=== PATIENT | female | born 1980 | race Two or more races ===

== ENCOUNTER 2025-07-22 09:51 | Outpatient (RCR) | payer MEDICAID, SELFPAY ==
--- NOTE | 2025-07-22 10:10 | PTNOTE_ITS ---
PT OP Initial Eval Patient Information Outpatient Physical Therapy Treatment Date: 07/22/25 Visit Reasons: Neck pain/shoulder pain Medical Diagnosis: M54.12 Treatment Dx #1: neck pain Treatment Dx #2: L UE pain Start of Care: 07/22/25 Date of Onset: 6 months ago Smoking Status Smoking Status: Never smoker Initial Assessment Subjective: Pt is 44 yr old female who c/o neck pain long Hx x10 yrs that has worsened over the past few years. When the pain is bad she has difficulty rotating the head and limits all activities. She sometimes gets some L UE pain under the shoulder pain and L shoulder pain. The neck feels tight. PMH: Imaging: MRI of C/S results not available today Pt goal: more ROM, less tightness in neck Objective: C/s AROM: L: 60% , R: 80% of full Extension: 30% with pain Flexion: 80% of full TTP: moderate/high of B UT's and L side of C/S Assessment: Pt presents with limited C/S AROM and myofascial pain consistent with DDD and L UE radiculopathy. Pt requires skilled therapy to meet goals and has fair rehab potential. 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 Ind with HEP ? 2. Improved L rotation to 80% of full ? 3. Decreased TTP of C/S paraspinals from mod to min ? 4. Pt will turn head L to R x5 with <=4/10 pain Treatment Plan 1. Manual therapy ? 2. Therex ? 3. Modalities as indicated, mechanical traction, estim, moist heat, ice Frequency and Duration: 1-2x a week for 8 Rx sessions plus the evaluation Certification Dates: 07/22/25 to 09/20/25 Procedure Charges OP PT Eval Mod Complex 30 minutes: Yes
== END 2025-07-27 23:59 | disposition home or self-care (01) ==
LOC: CPTX 09:51
PROVIDERS: PCP Physical Medicine & Rehabilitation Pain Medicine; Referring Provider Physical Medicine & Rehabilitation Pain Medicine; Visit Provider Physical Medicine & Rehabilitation Pain Medicine
DX: M54.12 Radiculopathy, cervical region (principal); M62.48 Contracture of muscle, other site
CPT/HCPCS: 97162

== ENCOUNTER 2025-08-12 13:30 | Outpatient (RCR) | payer MEDICAID, SELFPAY ==
--- NOTE | 2025-08-06 11:34 | PT.ODAYNRPT ---
PT Outpatient Daily Note OP Daily Note Outpatient Physical Therapy Treatment Date: 08/06/25 Visit Reasons: NECK AND SHOULDER PAIN Subjective: Pt c/o neck pain and tension in upper trap region. Objective: Please see flow sheet for ther ex list. Assessment: Pt performed light stretches for c/s, c/o minimal pain with L side bend. Plan: Apply mechanical traction, assess response to treatment. Length of Time (minutes) of Treatment: 30 Minutes Procedure Charges Therapeutic Exercise 30 minutes: Yes
--- NOTE | 2025-08-08 16:12 | PT.ODAYNRPT ---
PT Outpatient Daily Note OP Daily Note Outpatient Physical Therapy Treatment Date: 08/08/25 Visit Reasons: NECK AND SHOULDER PAIN Subjective: Pt reports neck felt a little better after last session. Objective: Please see flow sheet for ther ex list. Assessment: Applied mechanical traction, pt tolerated well and reported improved c/s symptoms. Plan: Continue with POC. Length of Time (minutes) of Treatment: 30 Minutes Procedure Charges Therapeutic Exercise 30 minutes: Yes
--- NOTE | 2025-08-12 14:18 | PT.ODAYNRPT ---
PT Outpatient Daily Note OP Daily Note Outpatient Physical Therapy Treatment Date: 08/12/25 Visit Reasons: NECK AND SHOULDER PAIN Subjective: Pt reports neck felt better after last session post mechanical traction. Objective: Please see flow sheet for ther ex list. Assessment: Pt tolerated mechanical traction well, decrease c/o pain. Plan: Continue with POC. Length of Time (minutes) of Treatment: 30 Minutes Procedure Charges Therapeutic Exercise 30 minutes: Yes
== END 2025-08-26 23:59 | disposition home or self-care (01) ==
LOC: CPTX 13:30
PROVIDERS: PCP Physical Medicine & Rehabilitation Pain Medicine; Referring Provider Physical Medicine & Rehabilitation Pain Medicine; Visit Provider Physical Medicine & Rehabilitation Pain Medicine
DX: M54.12 Radiculopathy, cervical region (principal)
CPT/HCPCS: 97110